=== PATIENT | female | born 1950 | race Caucasian/White ===

== ENCOUNTER 2018-12-23 21:03 | Inpatient (IN) | payer MEDICARE, OTHER ==
[~2018-12-23] VITALS: Ht 157.5 cm; Wt 124.7 kg
[~2018-12-23 21:03] MED LIST: ALBU90OI; ASPI81CH; ATOR20 PO; FURO40; HYDACE5 PO; LOSA50; LOSARTAN; Lopressor 25 mg25 MG; PRAV20; Prednisone20 MG PO; TOBR.3OPO
[2018-12-23 21:27] LABS: BASOPHILS ABSOLUTE AUTO 0.04 K/mm3 (0.00-0.23); BASOPHILS PERCENT AUTO 0 % (0-2); EOSINOPHILS ABSOLUTE AUTO 0.04 K/mm3 (0.00-0.68); EOSINOPHILS PERCENT AUTO 0 % (0-6); Hematocrit 42.9 % (33.0-51.0); Hemoglobin 14.2 g/dL (11.5-16.0); IMMATURE GRAN ABSOLUTE AUTO 0.06 K/mm3 (0.00-0.10); IMMATURE GRAN PERCENT AUTO 1 % (0-1); LYMPHOCYTES ABSOLUTE AUTO 1.47 K/mm3 (0.84-5.20); LYMPHOCYTES PERCENT AUTO 12 % (21-46); MONOCYTES PERCENT AUTO 13 % (4-13); Mean Corpuscular HGB 28.9 pg (26.0-34.0); Mean Corpuscular HGB Conc 33.1 g/dL (31.5-36.5); Mean Corpuscular Volume 87 fL (80-100); Mean Platelet Volume 12.2 fL (9.1-12.4); NEUTROPHILS ABSOLUTE AUTO 9.48 K/mm3 (1.96-9.15); NEUTROPHILS PERCENT AUTO 75 % (41-73); Platelet Count 237 K/mm3 (150-400); RDW Coefficient Variation 12.9 % (11.7-14.2); RDW Standard Deviation 41.1 fL (35.1-46.3); Red Blood Cell Count 4.91 M/mm3 (3.80-5.20); White Blood Cell Count 12.69 K/mm3 (4.00-11.30)
[2018-12-23 21:48] LABS: Source, Urine Clean Catch
[2018-12-23 21:50] LABS: Magnesium, Blood 2.1 mg/dL (1.6-2.4)
[2018-12-23 21:53] LABS: Bilirubin, Urine Neg (Neg); Blood, Urine 4+ (Neg); Glucose Qualitative, Urine 4+ (Neg); Ketones, Urine 2+ (Neg); Leukocyte Esterase, Urine 3+ (Neg); Nitrite, Urine Pos (Neg); Protein, Urine 2+ (Neg); Urobilinogen, Urine NORM (Normal)
[2018-12-23 21:55] LABS: Beta-hydroxybutyrate 15.8 mg/dL (0.2-2.8)
[2018-12-23 21:55] LABS: Appearance, Urine Cloudy (Clear); Color, Urine Yellow (P-Yellow)
[2018-12-23 22:01] LABS: White Blood Cells, Urine TNTC /hpf (0-5)
[2018-12-23 22:02] LABS: Bacteria Many /hpf; Squamous Epithelial Cells Not Seen /hpf (Few)
[2018-12-23 22:15] LABS: Alanine Aminotransfer (ALT/SGP 60 U/L (12-78); Albumin, Blood 2.7 g/dL (3.4-5.0); Albumin/Globulin Ratio 0.5 (0.8-1.8); Alk Phos 162 U/L (50-136); Anion Gap 11 mmol/L (6-16); Aspartate Aminotrans (AST/SGOT 48 U/L (12-37); Bilirubin, Total 0.5 mg/dL (0.1-1.0); Blood Urea Nitrogen 38 mg/dL (8-24); Bun/Creatinine Ratio 33.3 (12.0-20.0); CO2, Blood 22 mmol/L (21-32); Calcium, Blood 9.5 mg/dL (8.5-10.1); Chloride, Blood 91 mmol/L (98-108); Creatinine, Blood 1.14 mg/dL (0.40-1.00); Glomerular Filtration Rate 51 (60-); Glucose, Blood 636 mg/dL (70-99); Potassium, Blood 4.6 mmol/L (3.5-5.5); Sodium, Blood 124 mmol/L (136-145); Total Protein, Blood 7.7 g/dL (6.4-8.2)
[2018-12-23] MEDS ORDERED: GLIP5 PO (22:26)
[2018-12-23] MEDS ORDERED: ROSU5 PO (22:26)
[2018-12-23] MEDS ORDERED: METF500 PO (22:26)
[2018-12-23] MEDS ORDERED: FURO20 PO (22:26)
[2018-12-23] MEDS ORDERED: Synthroid25 MCG PO (22:26)
[2018-12-23] MEDS ORDERED: ONE-DAILY MULT1 EACH PO (22:27)
[2018-12-23] MEDS ORDERED: AMLO5 PO (22:27)
[2018-12-23] MEDS ORDERED: LOSARTAN-HCTZ1 EAC2 PO (22:27)
[2018-12-23 23:30] LABS: Osmolality, Serum 321 mos/KG (275-300)
[2018-12-23 23:31] LABS: Troponin I <0.015 ng/mL (0.000-0.040)
[2018-12-24 00:53] LABS: Glucose, Blood 428 mg/dL (70-99)
[2018-12-24 03:14] LABS: Anion Gap 6 mmol/L (6-16); Blood Urea Nitrogen 31 mg/dL (8-24); Bun/Creatinine Ratio 33.5 (12.0-20.0); CO2, Blood 25 mmol/L (21-32); Calcium, Blood 7.9 mg/dL (8.5-10.1); Chloride, Blood 106 mmol/L (98-108); Creatinine, Blood 0.92 mg/dL (0.40-1.00); Glomerular Filtration Rate >60 (60-); Glucose, Blood 386 mg/dL (70-99); Potassium, Blood 4.5 mmol/L (3.5-5.5)
[2018-12-24 03:15] LABS: Sodium, Blood 137 mmol/L (136-145)
--- NOTE | 2018-12-24 03:48 | NUR ---
CALL TO MD CALL TO DR GAMING REGARDING BLOOD GLUCOSE OF 419, AND THAT ER DC'D INSULIN. RESTART INSULIN GTT. OBTAINED NEW ORDERS.
[2018-12-24 04:10] LABS: Beta-hydroxybutyrate 5.8 mg/dL (0.2-2.8)
--- NOTE | 2018-12-24 04:49 | NUR ---
ADMIT NOTE: ASSUMED CARE OF PT AT 0300, RECEVIED REPORT FROM ER NURSE LENNOX. PT ARRIVED ON UNIT VIA STRETCHER. PT WAS TRANSFERD OVER WITH SLIDER SHEET. WHILE DOING MEDICATION REC. PT STATED " I DO NOT KNOW WHAT I TAKE OR WHEN I HAVE TO TAKE IT". HOWEVER, PT BROUGHT IN HOME MEDICATION, S.O WAS INSTRUCTED TO TAKE THEM HOME. PT WAS UNABLE TO RECALL THE LAST DOSE OF ANY MEDICATION. PT WAS A POOR BOX FEEDER.
--- NOTE | 2018-12-24 06:14 | NUR ---
SHIFT SUMMARY: PT IS CURRENTLY ON INSULIN 4 UNITS/HR, AND IS RECEVING Q1H CBG CHECKS TITRATING TO REDUCE BLOOD GLUCOSE BY 50 AN HOUR. PT IS INCONTINENT OF URINE, ALANNAH AREA RED AND EXCORIATED, NYASTATIN WAS ORDERED, SEE PICTURES IN CHART. PT HAS BEEN COMPLANING OF IRRITATION AND BURING SENSATION WHILE URINATING. PT IS BEING GIVEN ROCEPHIN PER EMAR FOR UTI.PT ALSO STATES THAT SHE IS INCONT OF STOOL. PT IS NPO, AND HAS BEEN RECEVING ORAL CARE T/O SHIFT. SOCIAL SERVICE CONSULT WAS PLACED DUE TO PT NOT TAKING HER MEDICATIONS ORDERED AND FOR NOT BEING ABLE TO PERFOM ADL'S IND AT HOME. SO AT BEDSIDE, WILL CONTINUE TO MONITOR UNTIL REPORT IS GIVEN TO ONCOMING SHIFT.
--- NOTE | 2018-12-24 07:06 | NUR ---
ASSUMED CARE: PT RESTING QUIETLY. S.O. AT BEDSIDE AT THIS TIME. INSULIN GTT AT 4 UNITS/HR. NS WITH KCL ALSO RUNNING, WILL CALL FOR NEW ORDERS WHEN CBG BELOW 200. PT HR NSR IN 80S AT THIS TIME. NO ACUTE NEEDS OR CONCERNS AT THIS TIME.
--- NOTE | 2018-12-24 07:43 | NUR ---
CBG CHECKED THIS AM. SEE LABS. CALL TO DR BLACK FOR NEW ORDERS REGARDING FLUIDS. DR BLACK STATES SHE WILL REVIEW AND WRITE NEW ORDERS
[2018-12-24 08:41] LABS: Anion Gap 6 mmol/L (6-16); Blood Urea Nitrogen 28 mg/dL (8-24); Bun/Creatinine Ratio 31.1 (12.0-20.0); CO2, Blood 24 mmol/L (21-32); Calcium, Blood 7.9 mg/dL (8.5-10.1); Chloride, Blood 110 mmol/L (98-108); Glomerular Filtration Rate >60 (60-); Glucose, Blood 231 mg/dL (70-99); Sodium, Blood 140 mmol/L (136-145)
--- NOTE | 2018-12-24 09:00 | NUR ---
AWARE OF RECENT LAB RESULTS. STATES SHE WILL REVIEW
--- NOTE | 2018-12-24 11:23 | NUR ---
DR BLACK HERE TO SEE PT. AWARE THAT PT HAS BEEN HAVING DIFFICULTY MOVING AT HOME, HAS NOT BEEN ABLE TO GET IN AND OUT OF BATHTUB DUE TO BEING UNABLE TO STEP OVER LIP IN TUB. REQUESTED PT/OT. DECLINED TO ORDER AT THIS TIME. WANTS TO EVALUATE FURTHER. ASKED IF PT NEEDED TO BE ICU STATUS, STATED SHE WOULD PUT ORDERS IN FOR TRANSFER PARAMETERS
--- NOTE | 2018-12-24 14:10 | NUR ---
2 OCLOCK CBG DONE PER INSTRUCTIONS OF DR BLACK. SEE LAB RESULT. CALL TO DR BLACK FOR COVERAGE INSTRUCTIONS DUE TO INCREASED CBG. DR STATES EXTRA COVERAGE NOW AND THEN RECHECK AT DINNER TIME. STATUS CHANGE PENDING DINNER RESULT. MONTESSORI TEACHER AWARE
--- NOTE | 2018-12-24 16:12 | NUR ---
Per admit trigger, I met with Vandana and her SO, Larry to offer information regarding an Advanced Directive. Vandana states that she does not want her children to have to make decisions on her behalf and wants Larry to be her MPOA. Gently explained the benefits and purpose of AD. Both agree this would be useful. As I began to help them complete form, it became clear to me that both medical literacy and literacy in general were low. This was especially true for Larry. Therefore, I carefuly explained each portion of AD in clear and simple terms. Form completed, witnessed, and a copy was hand-carried to medical records by me. Staff should be aware of low medical literacy as pt may not be able to understand medical language on medications. I will remain available.
--- NOTE | 2018-12-24 17:01 | NUR ---
SHIFT SUMMARY: PT REMAINS ON NS @ 100/HR. INSULIN GTT OFF SINCE THIS AM. DR AWARE OF CBGS T/O DAY. CALL TO LET HER KNOW OF DINNER CHECK AND TO SEE IF FURTHER ORDERS OR STATUS CHANGE NEEDED. AWAITING RETURN CALL. PT UP WITH SBA, INCONTINENT, ZANDRAIGN ATTENDS. NO FURTHER NEEDS OR CONCERNS NOTED.
--- NOTE | 2018-12-24 18:43 | NUR ---
REPORT CALLED TO KEZIA JEFFERS. PT'S SIGNIFICANT OTHER AT BEDSIDE AND AWARE OF NEW ROOM ASSIGNMENT. MEDICAL NURSE AWARE THAT PT NEED DIABETES EDUCATION PRIOR TO DC
--- NOTE | 2018-12-25 03:32 | NUR ---
SHIFT SUMMARY PT ADMITTED FOR HYPEROSMOLAR NON-KETOTIC SATE IN PT WITH DIABETES. FULL CODE. ADA DIET. NUTRITION EDUCATION FOR UNCONTROLLED DM WITH A HEMAGLOBIN A1C OF 15 AND PT DOES NOT APPEAR TO BE UNDERSTANDING MEDICATIONS AND IS REFUSING TO TAKE MEDICATIONS IF THE PT DOES NOT KNOW WHAT THE MEDICATION IS. UPON TRANSFER TO MEDICAL FLOOR PT WITH ORDERS FOR CBG Q1H, THIS WAS ONLY ORDERED WHILE PT ON INSULINE PUMP. CALL TO HOSPITALIST TO GET ORDER CHANGES TO CBG Q6 HRS. 20G IV TO L FA WITH NS AT 1OO MLS/HR. 20G IV TO R HAND INFILITRATED, WRAPPED IN WARM BLANKETS AND ELEVATED TO REDUCE SWELLING, PT APPEARS TO BE TOLLERATING WELL AND SWELLING APPEARS TO BE DECREASING. SBA WITH WALKER FOR TRANSFERS. TAKES MEDICATIONS WHOLE WITHOUT COMPLICATIONS. PT SLEPT SOME THIS NIGHT BUT HAS NOT APPEARED TO SLEEP TOO WELL. PT IS AWAKE WITH ATTENDS MANAGMENT BEING PROVIDED. NO APPARENT SIGNS OF ACUTE DISTRESS. ABLE TO MAKE NEEDS KNOWN AND CALL LIGHT IN REACH.
[2018-12-25 06:03] LABS: Albumin, Blood 2.1 g/dL (3.4-5.0); Anion Gap 7 mmol/L (6-16); Blood Urea Nitrogen 25 mg/dL (8-24); Bun/Creatinine Ratio 30.1 (12.0-20.0); CO2, Blood 22 mmol/L (21-32); Calcium, Blood 7.7 mg/dL (8.5-10.1); Chloride, Blood 108 mmol/L (98-108); Creatinine, Blood 0.83 mg/dL (0.40-1.00); Glomerular Filtration Rate >60 (60-); Glucose, Blood 236 mg/dL (70-99); Phosphorus, Blood 2.7 mg/dL (2.5-4.9); Potassium, Blood 3.7 mmol/L (3.5-5.5); Sodium, Blood 137 mmol/L (136-145)
--- NOTE | 2018-12-25 09:50 | NUR ---
CALLED DR BLACK- PT HAD EPISODE OF EXTREME SOB VITALS WERE TAKEN, RT CALLED AND ASSESSED PT RESPERATIONS. SBP LESS THAN 100. PT ASKED WHAT MAKES YOUR STOOL SO BLACK. PT HAD TAKEN HERSELF TO THE BATHROOM AND HAD A LARGE BLACK TARRY STOOL PER HER AND HER WHO IS AT THE BEDSIDE, THE STOOL WAS FLUSHED SO NOT VISUALIZED BY STAFF. HAT WAS PLACED IN THE TOILET TO CATCH THE NEXT SAMPLE. PT RESP RATE AND O2 RECOVERED WITH REST. PT STABLE AT THIS TIME. CALLED TO REQUEST H&H AND POSSIBLY GUIACC FOR NEXT STOOL. AWAITING A CALL BACK.
[2018-12-25 11:06] LABS: Hematocrit 39.5 % (33.0-51.0); Hemoglobin 12.5 g/dL (11.5-16.0)
[2018-12-25 16:55] LABS: Hematocrit 39.8 % (33.0-51.0); Hemoglobin 12.6 g/dL (11.5-16.0)
--- NOTE | 2018-12-25 18:39 | NUR ---
SHIFT SUMMARY- PT HAD SOME MED CHANGES. IVF DC'D. NEW ORDER FOR GUIACC STOOL SAMPLE. SEE PREVIOUS NOTES FOR DETAILS. PT CURRENTLY SITTING UP IN A CHAIR WITH THE CALL LIGHT IN REACH, ATTENDS REMOVED APPEAR TO BE CAUSING FURTHER IRRITATION TO THE RASH IN PT GROIN, PLACED ATTENDS IN THE ROOM FOR THE PT TO USE WHILE LAYING IN BED OPEN TO ALLOW AREA TO DRY. PT HAS DENIED PAIN T/O THE SHIFT.
--- NOTE | 2018-12-25 19:26 | NUR ---
CALLED BALJIT IN PHARMACY WAIT ON SECOND DOSE OF PROTONIX UNTIL . PASSED ON TO NIGHT RN.
[2018-12-25 22:47] LABS: Hemoglobin 11.9 g/dL (11.5-16.0)
[2018-12-26 04:59] LABS: Hematocrit 37.7 % (33.0-51.0); Hemoglobin 12.1 g/dL (11.5-16.0)
[2018-12-26 05:40] LABS: Albumin, Blood 2.2 g/dL (3.4-5.0); Anion Gap 8 mmol/L (6-16); Blood Urea Nitrogen 20 mg/dL (8-24); CO2, Blood 22 mmol/L (21-32); Calcium, Blood 8.2 mg/dL (8.5-10.1); Chloride, Blood 109 mmol/L (98-108); Creatinine, Blood 0.87 mg/dL (0.40-1.00); Glomerular Filtration Rate >60 (60-); Glucose, Blood 144 mg/dL (70-99); Phosphorus, Blood 3.5 mg/dL (2.5-4.9); Potassium, Blood 3.8 mmol/L (3.5-5.5); Sodium, Blood 139 mmol/L (136-145)
--- NOTE | 2018-12-26 06:31 | NUR ---
AOX3. NO C/O SOB. PAIN RATED 5/10 IN ABDOMEN. 3-4+ EDEMA IN LOWER EXT. NYSTATIN TO GROIN AND ABD FOLDS. BLOOD SUGAR WAS 147 THIS AM. STILL NEED OCCULT STOOL.
[2018-12-26] MEDS ORDERED: INSULANPEN SC (11:19)
[2018-12-26] MEDS ORDERED: HUMALOG KW200 UNIT/1 SC ×2 (11:20→11:21)
[2018-12-26] MEDS ORDERED: LOSA50 PO (11:22)
[2018-12-26] MEDS ORDERED: Pedi-Dri 100,0060 GM TOP (11:22)
[2018-12-26] MEDS ORDERED: PANT40 PO (11:23)
[2018-12-26] MEDS ORDERED: CEFU500T30 PO (11:23)
--- NOTE | 2018-12-26 14:34 | NUR ---
DISCHARGE NOTE PT DISCHARGED VIA W/C POV WITH SPOUSE AND STATES "I HAVEN'T FELT THIS GOOD IN 5 YEARS". [facility] [place] PT GIVEN WRITTEN RX FOR GLUCOSE MONITORING KIT. PT AND SPOUSE VERBALIZED UNDERSTANDING OF IMPORTANCE OF OBTAINING A PCP (RESOURCES AND MEDICAL FORMS PROVIDED [facility] [place]). ENCOURAGED TO RETURN IF SYMPTOMS WORSEN. ALL VALUABLES SENT HOME WITH PATIENT.
== END 2018-12-26 14:30 | disposition home or self-care (01) | DRG 871 ==
LOC: ER 21:03 → ICUW 12-24 02:57 → MEDS 12-24 18:41 → ENPENDDIS 12-26 11:46 → MEDS 12-26 14:30
PROVIDERS: Emergency Medicine; Internal Medicine; Nurse Practitioner Acute Care; ADMIT Internal Medicine
DX: A41.51 Sepsis due to Escherichia coli [E. coli] (principal); E11.00 Type 2 diabetes mellitus with hyperosmolarity without nonketotic hyperglycemic-hyperosmolar coma (NKHHC); N17.9 Acute kidney failure, unspecified; N39.0 Urinary tract infection, site not specified; E87.1 Hypo-osmolality and hyponatremia; K92.1 Melena; Z68.43 Body mass index [BMI] 50.0-59.9, adult; E66.01 Morbid (severe) obesity due to excess calories; I10 Essential (primary) hypertension; E03.9 Hypothyroidism, unspecified; E78.5 Hyperlipidemia, unspecified; B37.9 Candidiasis, unspecified; J44.9 Chronic obstructive pulmonary disease, unspecified; Z87.891 Personal history of nicotine dependence; Z91.14 Patient's other noncompliance with medication regimen; I25.10 Atherosclerotic heart disease of native coronary artery without angina pectoris; I25.2 Old myocardial infarction; E11.40 Type 2 diabetes mellitus with diabetic neuropathy, unspecified
CPT/HCPCS: 36415; 71045; 80048; 80053; 80069; 81001; 82010; 82947; 83036; 83605; 83735; 83930; 84132; 84484; 85014; 85018; 85025; 87040; 87077; 87086; 87186; 93005; 93010; 94760; 96361; 96365; 96366; 96368; 96375; 99285-25; C9113; J0696; J1650; J1815; J2405; J3480; J7030; P9612

== ENCOUNTER 2021-09-25 11:35 | Inpatient (IN) | payer MEDICARE, OTHER ==
[~2021-09-25] VITALS: Ht 157.5 cm; Wt 126.6 kg
[~2021-09-25 11:35] MED LIST changes: +AMLO5 PO; +CEFU500T30 PO; +FURO20 PO; +GLIP5 PO; +HUMALOG KW200 UNIT/1 SC; +INSULANPEN SC; +LOSA50 PO; +LOSARTAN-HCTZ1 EAC2 PO; +METF500 PO; +ONE-DAILY MULT1 EACH PO; +PANT40 PO; +Pedi-Dri 100,0060 GM TOP; +ROSU5 PO; +Synthroid25 MCG PO
[2021-09-25 11:50] LABS: Chloride (POC) 105 mmol/L (98-108); Creatinine (POC) 1.2 mg/dL (0.6-1.0); Glucose (ISTAT POC) 218 mg/dL (70-99); Potassium (POC) 4.3 mmol/L (3.5-5.5); Sodium (POC) 141 mmol/L (135-148); Total CO2 (POC) 24 mmol/L (21-32)
--- NOTE | 2021-09-25 13:56 | NUR ---
ADMIT PT ARRIVED TO ICU ROOM 1 VIA BED AT 1300 S/P EXPLORATION DRILLER. PT IS AWAKE, ALERT, AND ORIENTED. PT IS SLOW TO RESPOND, BUT ANSWERS QUESTIONS APPROPRIATELY. PT DENIES CHEST PAIN OR SOB. TR BAND IN PLACE TO RIGHT RADIAL SITE, SITE IS SOFT, NO HEMATOMA OR OOZING NOTED. IV SALINE LOCKED. VITAL SIGNS STABLE. ST ELEVATION NOTED ON MONITOR. PT SPOUSE AT BEDSIDE. WILL CONTINUE TO MONITOR.
[2021-09-25 14:42] LABS: Albumin, Blood 2.9 g/dL (3.4-5.0); Anion Gap 5 mmol/L (6-16); Blood Urea Nitrogen 19 mg/dL (8-24); Bun/Creatinine Ratio 20.3 (12.0-20.0); CO2, Blood 26 mmol/L (21-32); Calcium, Blood 8.6 mg/dL (8.5-10.1); Chloride, Blood 109 mmol/L (98-108); Creatinine, Blood 0.94 mg/dL (0.40-1.00); Glomerular Filtration Rate 66 (60-); Glucose, Blood 162 mg/dL (70-99); Phosphorus, Blood 2.5 mg/dL (2.5-4.9); Potassium, Blood 4.1 mmol/L (3.5-5.5); Sodium, Blood 140 mmol/L (136-145)
--- NOTE | 2021-09-25 17:36 | NUR ---
SHIFT SUMMARY NO ACUTE CHANGES THIS AFTERNOON. PT REMAINS ALERT AND ORIENTED WHEN AWAKE. PT COMPLAINS OF MILD CHEST DISCOMFORT AT TIMES THAT COMES AND GOES. VITAL SIGNS REMAINS STABLE, SBP 80-100'S. PT WITH SHORT PERIODS OF RHYTHM CHANGE, THEN BACK TO NSR WITH ST ELEVATION. DR ABDI AWARE. NS INFUSING AT 100 ML/HR. TR BAND TO RIGHT RADIAL SITE DEFLATED. ARM BOARD REMAINS IN PLACE, SITE IS SOFT, NONTENDER, NO HEMATOMA NOTED. PT SPOUSE REMAINS AT BEDSIDE. WILL CONTINUE TO MONITOR AND REPORT OFF TO ONCOMING RN.
--- NOTE | 2021-09-25 19:00 | NUR ---
ASSUMED CARE PT RESTING COMFORTABLY IN BED. NS INFUSING @ 100.
--- NOTE | 2021-09-26 03:23 | NUR ---
PT NEURO INTACT - NO CHANGE. PAIN MANAGED EFFECTIVELY ON PRN. CATH R RADIAL SITE - CLEAN/DRY/INTACT, NO HEMOTOMA, SENSATION INTACT. REPORTED CHEST PAIN GRADUALLY IMPROVING. ABLE TO ASSIST WITH TURNS. INCONTINENT OF URINE & BOWEL. COCCYX - BLANCABLE REDDNESS - CLEANSED & MOSITURE BARRIER CREAM APPLIED, & MOISTURE WICKING PAD IN PLACE. PT INSISTED LAYING ON BACK - STATED SLEEPS ON RECLINER AT HOME.
[2021-09-26 03:45] LABS: BASOPHILS ABSOLUTE AUTO 0.03 K/mm3 (0.00-0.23); BASOPHILS PERCENT AUTO 0 % (0-2); EOSINOPHILS ABSOLUTE AUTO 0.23 K/mm3 (0.00-0.68); EOSINOPHILS PERCENT AUTO 3 % (0-6); Hematocrit 40.7 % (33.0-51.0); Hemoglobin 12.9 g/dL (11.5-16.0); IMMATURE GRAN ABSOLUTE AUTO 0.02 K/mm3 (0.00-0.10); IMMATURE GRAN PERCENT AUTO 0 % (0-1); LYMPHOCYTES ABSOLUTE AUTO 1.19 K/mm3 (0.84-5.20); LYMPHOCYTES PERCENT AUTO 14 % (21-46); MONOCYTES ABSOLUTE AUTO 0.89 K/mm3 (0.16-1.47); MONOCYTES PERCENT AUTO 11 % (4-13); Mean Corpuscular HGB 29.3 pg (26.0-34.0); Mean Corpuscular HGB Conc 31.7 g/dL (31.5-36.5); Mean Corpuscular Volume 92 fL (80-100); NEUTROPHILS ABSOLUTE AUTO 6.07 K/mm3 (1.96-9.15); NEUTROPHILS PERCENT AUTO 72 % (41-73); Platelet Count 190 K/mm3 (150-400); RDW Coefficient Variation 13.5 % (11.7-14.2); RDW Standard Deviation 46.2 fL (35.1-46.3); Red Blood Cell Count 4.41 M/mm3 (3.80-5.20); White Blood Cell Count 8.43 K/mm3 (4.00-11.30)
[2021-09-26 04:05] LABS: Bun/Creatinine Ratio 19.5 (12.0-20.0); Calcium, Blood 8.5 mg/dL (8.5-10.1); Creatinine, Blood 0.87 mg/dL (0.40-1.00)
--- NOTE | 2021-09-26 08:54 | NUR ---
ASSUMPTION OF CARE RECEIVED REPORT FROM KEISHA MAST, ASSUMED CARE OF PATIENT AT 0715. PATIENT IN BED, A/O, SP02 95% ON RA. DENIED DISCOMFORTS. ASSESSED RIGHT RADIAL SITE WITH PUNCTURE SITE HEALED, SOFT, NO BLEEDING AND CLEAR TEGADERM IN PLACE. BREAKFAST TRAY PROVIDED, TO BEDSIDE. WILL REVIEW ORDERS AND TREAT PRESCRIBED.
--- NOTE | 2021-09-26 09:42 | NUR ---
Echocardiogram completed.
--- NOTE | 2021-09-26 12:00 | NUR ---
REASSESSMENT NO ACUTE CHANGES FROM PREVIOUS ASSESSMENT. EKG AND ECHO COMPLETED ORDERED. VITALS STABLE WITH BLOOD PRESSURE IMPROVING AFTER INCREASE OF IVF RATE. PHYSICAL THERAPY EVALUATED AND ASSISTED TO CHAIR, PATIENT TOLERATED WELL. WILL CONTINUE TO MONITOR.
--- NOTE | 2021-09-26 18:07 | NUR ---
SHIFT SUMMARY PATIENT ORIENTED, AND DECLINED DISCOMFORTS THROUGH SHIFT. RIGHT RADIAL ACCESS SITE REMAINED WITHIN NORMAL LIMITS. BLOOD PRESSURE LOWER WITH STABLE MAPS, IVF INCREASED WITH GOOD RESPONSE. PHYSICAL THERAPY EVALUATED AND PATIENT UP TO CHAIR IN AFTERNOON FOR LUNCH. IV IN RAC PAINFUL, UNABLE TO FLUSH DC'D WITH CATHETER INTACT AND POWERGLIDE PLACED TO JOHANN. INCONTINENT OF URINE VIA ATTENDS PER PATIENT'S BASELINE. STATUS CHANGED TO PCU. WILL REPORT TO ONCOMING RN.
--- NOTE | 2021-09-26 21:35 | NUR ---
Assumed Care. Aox3, able to make needs known, uses call light appropriatly. LS clear t/o. Resp E/U. Sats >95% on RA. Sinus rhythm on monitor with elevation in T-wave. Rate in the 80's. Blood pressure on the soft side, 110's. Held coreg. Denies any current chest pain, or discomfort. SOB with exertion. Right radial wrist acess side CDI. Abd soft, BT active, passing flatus. Attends changed saturated with yellow urine. Skin PWD, coccyx with redness blanchable skin tears, barrier cream applied. Boosted up in bed. Edema to BUE and BLE. Bruising to BUE. IVF infusing. Call Light in reach. Bed low position.
--- NOTE | 2021-09-26 23:50 | NUR ---
Pt awake watching tv. VS WNL. Denies any discomfort. Denies any needs. Attends changed, repositioned. Will continue to monitor.
[2021-09-27 04:42] LABS: BASOPHILS ABSOLUTE AUTO 0.05 K/mm3 (0.00-0.23); BASOPHILS PERCENT AUTO 1 % (0-2); EOSINOPHILS ABSOLUTE AUTO 0.28 K/mm3 (0.00-0.68); EOSINOPHILS PERCENT AUTO 4 % (0-6); Hematocrit 36.3 % (33.0-51.0); Hemoglobin 11.5 g/dL (11.5-16.0); IMMATURE GRAN ABSOLUTE AUTO 0.01 K/mm3 (0.00-0.10); IMMATURE GRAN PERCENT AUTO 0 % (0-1); LYMPHOCYTES ABSOLUTE AUTO 1.36 K/mm3 (0.84-5.20); LYMPHOCYTES PERCENT AUTO 20 % (21-46); MONOCYTES ABSOLUTE AUTO 0.78 K/mm3 (0.16-1.47); MONOCYTES PERCENT AUTO 11 % (4-13); Mean Corpuscular HGB 29.3 pg (26.0-34.0); Mean Corpuscular HGB Conc 31.7 g/dL (31.5-36.5); Mean Corpuscular Volume 93 fL (80-100); Mean Platelet Volume 12.4 fL (9.1-12.4); NEUTROPHILS ABSOLUTE AUTO 4.34 K/mm3 (1.96-9.15); NEUTROPHILS PERCENT AUTO 64 % (41-73); Platelet Count 174 K/mm3 (150-400); RDW Coefficient Variation 13.7 % (11.7-14.2); RDW Standard Deviation 46.7 fL (35.1-46.3); Red Blood Cell Count 3.92 M/mm3 (3.80-5.20); White Blood Cell Count 6.82 K/mm3 (4.00-11.30)
[2021-09-27 05:05] LABS: Bun/Creatinine Ratio 16.6 (12.0-20.0); Calcium, Blood 8.3 mg/dL (8.5-10.1); Creatinine, Blood 0.84 mg/dL (0.40-1.00); Potassium, Blood 3.8 mmol/L (3.5-5.5)
--- NOTE | 2021-09-27 05:27 | NUR ---
Shift Summary: Vandana is doing better. Denied any chest pain or discomfort all night. Slept off and on. Afebrile. LS clear w/ dim bases. RA sats >95%. Sinus with ST elevation on the monitor. Rate in the 90's. BP soft in the low 100's at start of shift. Coreg was held. Last BP 150's, MAPS have been good. Faint pulses bilaterally. Edema to BUE and BLE. IVF infusing all night. She is able to reposition self in bed, still gets SOB even turning over with recovery less than 1 minute. Blanchable redenss to coccyx, barrier cream applied. Incontient of urine, 3 changes this evening. Morning labs with no significant changes. uses call light appropriatly, bed in low position.
--- NOTE | 2021-09-27 06:28 | NUR ---
Pt c/o swelling in her legs, abdomin, and hands. She goes on to explain this happened to her last time with getting fluids and it causes her more SOB. She is SOB even sitting in bed. Request that fluids to be stopped. Edema is slightly more in her BLE and hands. She states it feels tight around her abdomin. Elevated BLE. Sats are 96% on RA. Will inform dayshift.
--- NOTE | 2021-09-27 07:42 | NUR ---
ASSUMPTION OF CARE RECEIVED REPORT FROM REYNALDO MAST AT 0700, ASSUMED CARE OF PATIENT. PATIENT AWAKE, STATING "LOOK AT MY HEART", RN ASSESSED HEART RATE AND BLOOD PRESSURE AND STATING THEY LOOKED IMPROVED. PATIENT SAID THEY FILLED ME UP WITH FLUIDS, I'M SWOLLEN. PATIENT ASSESSED WITH TRACE EDEMA NOTED THROUGHOUT BUT NO CHANGES FROM PREVIOUS SHIFT AND ASSESSMENT. EXPLAINED TO PATIENT SHE DIDN'T APPEAR TO HAVE EXCESS FLUIDS BUT OFFERED TO ASSIST PATIENT TO GET UP AND MOVE AROUND. PATIENT STATED "DO YOU KNOW WHAT I DO ALL DAY? I LIVE IN MY RECLINER, I SLEEP IN MY RECLINER, I WALK TO THE BATHROOM AND THEN STAY IN MY RECLINER. I HAVEN'T BEEN TO A STORE IN OVER A YEAR. I AM TOO SHORT OF BREATH AT ALL TIMES TO DO ANYTHING". PATIENT CONTINUED TO STATE HER HANDS AND FEET WERE SWOLLEN AND THAT HER BLOOD PRESSURE WAS HIGH. RN OFFERED TO SPEAK TO THE DOCTOR, PATIENT STATED SHE DOESN'T LIKE LASIX AND DID NOT WANT TO DO THAT. ONCE PATIENT WAS ASSISTED UP TO THE CHAIR PATIENT WAS COMFORTABLE. BREAKFAST WAS PROVIDED AND ARRIVED TO ROOM. REPORTED TO DR. DAUGHERTY PATIENT'S CONCERNS FOR FLUID OVERLOAD, DR. DAUGHERTY REVIEWED VITALS AND MEDICATIONS. NO NEW ORDERS AT THIS TIME. WILL ADMINISTER MORNING MEDICATIONS ORDERED AND CONTINUE TO MONITOR PATIENT'S DISCOMFORTS.
--- NOTE | 2021-09-27 11:54 | NUR ---
REASSESSMENT PATIENT WITH NO ACUTE CHANGES FROM PREVIOUS ASSESSMENT. REMAINS UP TO CHAIR WITH STANDBY ASSIST TO TOILET AND STEADY GAIT. VITALS STALBE, ON ROOM AIR. DENIES DISCOMFORTS. SPOKE WITH DR. ABDI AROUND 1030 WHO CLEARED PATIENT TO GO AND STATED HE WOULD WORK ON DISCHARGE PAPERWORK. WILL CONTINUE TO MONITOR.
[2021-09-27] MEDS ORDERED: ASPI81CH PO (15:12)
[2021-09-27] MEDS ORDERED: LOSA25 PO (15:15)
[2021-09-27] MEDS ORDERED: ATOR40TA PO (15:16)
[2021-09-27] MEDS ORDERED: FAMO20 PO (15:17)
[2021-09-27] MEDS ORDERED: BENADRYL25 MG PO (15:17)
[2021-09-27] MEDS ORDERED: DOCU100 PO (15:17)
[2021-09-27] MEDS ORDERED: MASOPHEN325 M3 PO (15:18)
[2021-09-27] MEDS ORDERED: LEVOTHYROXINE75 MC8 PO (15:20)
[2021-09-27] MEDS ORDERED: Lopressor 25 mg25 MG PO (15:22)
[2021-09-27] MEDS ORDERED: TICA90TA PO (15:23)
[2021-09-27] MEDS ORDERED: OZEMPIC1 MG/0.72 SC (15:23)
--- NOTE | 2021-09-27 16:09 | NUR ---
DISCHARGE PATIENT DISCHARGED HOME WITH . DISCHARGE INSTRUCTIONS AND EDUCATION GIVEN TO PATIENT. PRESCRIPTIONS FAXED TO [facility] PER PATIENT'S REQUEST. RECOMMENDATIONS FOR HOME HEALTH GIVEN, PATIENT DECLINED AT THIS TIME. POWERGLIDE REMOVED IN LUE WITH CATHETER INTACT. RADIAL SITE REMAINED WITHIN NORMAL LIMITS UPON DISCHARGE.
== END 2021-09-27 16:15 | disposition home or self-care (01) | DRG 247 ==
LOC: ER 11:35 → ICUE 11:42 → ICUW 11:42 → ICUE 13:15
PROVIDERS: Internal Medicine; ADMIT Internal Medicine Interventional Cardiology
PROC: 0270346 Dilation of Coronary Artery, One Artery, Bifurcation, with Drug-eluting Intraluminal Device, Percutaneous Approach (ICD-10-PCS; principal; 2021-09-25)
PROC: 4A023N7 Measurement of Cardiac Sampling and Pressure, Left Heart, Percutaneous Approach (ICD-10-PCS; 2021-09-25)
PROC: B2111ZZ Fluoroscopy of Multiple Coronary Arteries using Low Osmolar Contrast (ICD-10-PCS; 2021-09-25)
DX: I21.19 ST elevation (STEMI) myocardial infarction involving other coronary artery of inferior wall (principal); Z68.43 Body mass index [BMI] 50.0-59.9, adult; I25.10 Atherosclerotic heart disease of native coronary artery without angina pectoris; I10 Essential (primary) hypertension; E11.9 Type 2 diabetes mellitus without complications; J44.9 Chronic obstructive pulmonary disease, unspecified; E66.01 Morbid (severe) obesity due to excess calories; I25.2 Old myocardial infarction; E78.5 Hyperlipidemia, unspecified; E03.9 Hypothyroidism, unspecified; Z88.8 Allergy status to other drugs, medicaments and biological substances; Z79.4 Long term (current) use of insulin; Z79.899 Other long term (current) drug therapy; Z90.49 Acquired absence of other specified parts of digestive tract
CPT/HCPCS: 36415; 71045; 76937; 80047; 80048; 80069; 82947; 84484; 85014; 85025; 85347; 92921; 92941; 93005; 93010; 93306; 93454; 97110; 97116; 97162; 97530; 99152; 99153; 99285-25; A9270; C1725; C1751; C1769; C1874; C1887; C1894; C9606; J0153; J0461; J1644; J1650; J1815; J1940; J2250; J3010; J7030; J7040; Q9967